=== PATIENT | male | born 1955 | race Two or more races ===

== ENCOUNTER 2017-10-27 09:36 | Emergency (ER) | payer MEDICAID, MEDICARE, OTHER ==
[2017-10-27] MEDS ORDERED: Sodium Chloride 0.9% 10 ML Syringe FLUSH PRN (09:47)
[2017-10-27] MEDS ORDERED: Sodium Chloride 0.9% 2.5 ML Syringe FLUSH PRN (09:47)
--- NOTE | 2017-10-27 09:57 | EDM.PDOC ---
ED HPI GENERAL MEDICAL PROBLEM - General Chief Complaint: Chest Pain Stated Complaint: PAIN IN CHEST AREA FROM FALL Time Seen by Provider: 10/27/17 09:47 - History of Present Illness INITIAL COMMENTS - FREE TEXT/NARRATIVE: HISTORY AND PHYSICAL: History of present illness: Patient's a 62-year-old male with history of diabetes who presents 1 week status post fall which he injured his right shoulder she had some mild pain since then he's noticed some bruising to his right chest now that developed subsequent to this fall he cannot sustain any chest injury and he had her neck pain or trauma he denies any other injury chest pain shortness of breath or other concern. Review of systems: As per history of present illness and below otherwise all systems reviewed and negative. Past medical history: As per history of present illness and as reviewed below otherwise noncontributory. Surgical history: As per history of present illness and as reviewed below otherwise noncontributory. Social history: No reported history of drug or alcohol abuse. Family history: As per history of present illness and as reviewed below otherwise noncontributory. Physical exam: HEENT: Atraumatic, normocephalic, pupils reactive, negative for conjunctival pallor or scleral icterus, mucous membranes moist, throat clear, neck supple, nontender, trachea midline. Lungs: Clear to auscultation, breath sounds equal bilaterally, chest with nontender ecchymosis noted likely from extravasation from recent shoulder injury. Heart: S1S2, regular, negative for clicks, rubs, or JVD. Abdomen: Soft, nondistended, nontender. Negative for masses or hepatosplenomegaly. Negative for costovertebral tenderness. Pelvis: Stable nontender. Genitourinary: Deferred. Rectal: Deferred. Extremities: Atraumatic, negative for cords or calf pain. Neurovascular unremarkable. Right shoulder is full range of motion patient has some mild tenderness in the region of the anterior deltoid is no crepitation no point tenderness CMS and neurovascular are unremarkable Neuro: Awake, alert, oriented. Cranial nerves II through XII unremarkable. Cerebellum unremarkable. Motor and sensory unremarkable throughout. Exam nonfocal. Diagnostics: X-ray right shoulder x-ray chest Therapeutics: None Impression: #1 right shoulder injury #2 history of non-insulin diabetes Definitive disposition and diagnosis as appropriate pending reevaluation and review of above. - Related Data Allergies Allergy/AdvReac Type Severity Reaction Status Date / Time No Known Allergies Allergy Verified 10/27/17 09:52 Home Meds: Home Meds Dulaglutide [Trulicity] 10/27/17 [History] metFORMIN [Glucophage XR] 500 mg PO BID 10/27/17 [History] ED ROS GENERAL - Review of Systems Review Of Systems: ROS reveals no pertinent complaints other than HPI. ED EXAM, GENERAL - Physical Exam Exam: See Below (See dictation) Course - Vital Signs Last Recorded V/S: Last Vital Signs Temp 36.0 C 10/27/17 09:49 Pulse 90 10/27/17 09:49 Resp 18 10/27/17 09:49 BP 123/59 L 10/27/17 09:49 Pulse Ox 95 10/27/17 09:49 - Orders/Labs/Meds Orders: Active Orders 24 hr Category Date Time Status Cardiac Monitoring [RC] . DIRECTED Care 10/27/17 09:47 Inactive EKG Documentation Completion [RC] STAT Care 10/27/17 09:47 Inactive Oxygen Therapy, ED [RC] ASDIRECTED Care 10/27/17 09:47 Inactive Pulse Oximetry [RC] ASDIRECTED Care 10/27/17 09:47 Inactive Chest 1V Frontal [CR] Stat Exams 10/27/17 09:47 Taken Shoulder Comp Rt [CR] Stat Exams 10/27/17 09:51 Taken Sodium Chloride 0.9% [Saline Flush] Med 10/27/17 09:47 Active 10 ml FLUSH ASDIRECTED PRN Sodium Chloride 0.9% [Saline Flush] Med 10/27/17 09:47 Active 2.5 ml FLUSH ASDIRECTED PRN Saline Lock Insert [OM.PC] Stat Oth 10/27/17 09:47 Ordered Medication Orders Sodium Chloride (Saline Flush) 10 ml FLUSH ASDIRECTED PRN PRN Reason: Keep Vein Open Sodium Chloride (Saline Flush) 2.5 ml FLUSH ASDIRECTED PRN PRN Reason: Keep Vein Open Meds: Medications Generic Name Dose Route Start Last Admin Trade Name Freq PRN Reason Stop Dose Admin Sodium Chloride 10 ml 10/27/17 09:47 Saline Flush FLUSH ASDIRECTED PRN Keep Vein Open Sodium Chloride 2.5 ml 10/27/17 09:47 Saline Flush FLUSH ASDIRECTED PRN Keep Vein Open Departure - Departure Time of Disposition: 09:56 Disposition: Home, Self-Care 01 Condition: Good Clinical Impression: Shoulder injury - Discharge Information Referrals: PCP,None [Primary Care Provider] - Forms: ED Department Discharge Additional Instructions: The following information is given to patients seen in the emergency department who are being discharged to home. This information is to outline your options for follow-up care. We provide all patients seen in our emergency department with a follow-up referral. The need for follow-up, as well as the timing and circumstances, are variable depending upon the specifics of your emergency department visit. If you don't have a primary care physician on staff, we will provide you with a referral. We always advise you to contact your personal physician following an emergency department visit to inform them of the circumstance of the visit and for follow-up with them and/or the need for any referrals to a consulting specialist. The emergency department will also refer you to a specialist when appropriate. This referral assures that you have the opportunity for followup care with a specialist. All of these measure are taken in an effort to provide you with optimal care, which includes your followup. Under all circumstances we always encourage you to contact your private physician who remains a resource for coordinating your care. When calling for followup care, please make the office aware that this follow-up is from your recent emergency room visit. If for any reason you are refused follow-up, please contact the [facility] emergency department at and asked to speak to the emergency department charge nurse. [facility] Professional [address], [address] [place] [address] Motrin/Tylenol as directed follow-up orthopedic clinic above call to schedule appointment return as needed as discussed - My Orders Last 24 Hours: My Active Orders 10/27/17 09:47 Cardiac Monitoring [RC] . DIRECTED EKG Documentation Completion [RC] STAT Oxygen Therapy, ED [RC] ASDIRECTED Pulse Oximetry [RC] ASDIRECTED Chest 1V Frontal [CR] Stat Sodium Chloride 0.9% [Saline Flush] 10 ml FLUSH ASDIRECTED PRN Sodium Chloride 0.9% [Saline Flush] 2.5 ml FLUSH ASDIRECTED PRN Saline Lock Insert [OM.PC] Stat 10/27/17 09:51 Shoulder Comp Rt [CR] Stat - Assessment/Plan Last 24 Hours: My Active Orders 10/27/17 09:47 Cardiac Monitoring [RC] . DIRECTED EKG Documentation Completion [RC] STAT Oxygen Therapy, ED [RC] ASDIRECTED Pulse Oximetry [RC] ASDIRECTED Chest 1V Frontal [CR] Stat Sodium Chloride 0.9% [Saline Flush] 10 ml FLUSH ASDIRECTED PRN Sodium Chloride 0.9% [Saline Flush] 2.5 ml FLUSH ASDIRECTED PRN Saline Lock Insert [OM.PC] Stat 10/27/17 09:51 Shoulder Comp Rt [CR] Stat
--- NOTE | 2017-10-28 16:44 | CR ---
EXAM DATE: 10/27/17 PATIENT'S AGE: 62 Patient: EUGENIA JEROME Facility: [place], [place] Site . Site : 1955 Study: XRay Chest [id number]/[id number] 10:16:42 AM Ordering Physician: Doctor Geiger Final Report: HISTORY: Right side of bruising Portable chest. FINDINGS: Normal cardiac mediastinal silhouette. The lungs are clear. Right basilar strandy atelectasis. No acute airspace or interstitial process. No pneumothorax. No effusion. IMPRESSION: 1. No acute pulmonary process . Dictated by Kellen Winslow MD @ Oct 27 2017 10:35AM (Electronic Signature) Report Signed by Proxy. CHRISTY
--- NOTE | 2017-10-28 16:44 | CR ---
EXAM DATE: 10/27/17 PATIENT'S AGE: 62 Patient: EUGENIA JEROME Facility: [place], [place] Site . Site : 1955 Study: XRay Shoulder Right [id number]/18/2018 10:17:13 AM Ordering Physician: Doctor Geiger Final Report: INDICATION: R side bruising No known injury TECHNIQUE: Three views of the right shoulder submitted. COMPARISON: None. FINDINGS: Mild degenerative changes in the right glenohumeral and acromioclavicular joints. No fracture or dislocation. IMPRESSION: No acute bony abnormality. Dictated by Jonathan Portillo MD @ 10/27/2017 10:38:30 AM Dictated by: Jonathan Portillo MD @ 10/27/2017 10:38:38 (Electronic Signature) Report Signed by Proxy. [email or web address]
== END 2017-10-27 11:23 | disposition home or self-care (01) ==
LOC: MW.ED 09:36
DX: S49.91XA Unspecified injury of right shoulder and upper arm, initial encounter (principal); E11.9 Type 2 diabetes mellitus without complications; Z79.84 Long term (current) use of oral hypoglycemic drugs; W19.XXXA Unspecified fall, initial encounter
CPT/HCPCS: 71045; 71045-26; 73030-26-RT; 73030-RT; 99283; 99284-25